=== PATIENT | male | born 1995 | race Two or more races ===

== ENCOUNTER 2018-10-07 12:15 | Emergency (ER) | payer MEDICAID ==
[~2018-10-07] VITALS: Ht 170.2 cm; Wt 148.7 kg
[2018-10-07 12:49] VITALS: BP 131/48
[2018-10-07] MEDS ORDERED: PROPARACAINE OPHTH 0.5%, 15ML EACHEYE ONE (13:30)
[2018-10-07] MEDS ORDERED: FLUORESCEIN OPHTHALMIC 1 MG STRIP EACHEYE ONE (13:30)
--- NOTE | 2018-10-07 14:35 | NUR ---
PT AT CHARGE DESK ASKING FOR DISCHARGE. DISHARGE INSTRUCTIONS REVIEWED INCLUDING MEDICATIONS AND FOLLOW UP. PT VERBALIZES UNDERSTANDING, DISCHARGE AMBULATORY.
--- NOTE | 2018-10-07 14:35 | NUR ---
PT ELOPED /A OPERATIONAL RISK CONSULTANT OR D/C.
== END 2018-10-07 14:49 | disposition home or self-care (01) ==
LOC: ED 14:30
DX: H10.021 Other mucopurulent conjunctivitis, right eye (principal)
CPT/HCPCS: 99283

== ENCOUNTER 2020-04-23 08:12 | Emergency (ER) | payer MEDICAID, OTHER ==
[~2020-04-23] VITALS: Ht 172.7 cm; Wt 167.7 kg
--- NOTE | 2020-04-23 08:30 | NUR ---
PT HAS CO OF CHEST TIGHTNESS SINCE 3 AM. PT STATES IT IS A SHARP PAIN RADIATES TO SHOULDER, HURTS WHEN TAKES A DEEP BREATH. PT NOT IN DISTRESS. DENIES GI N/V, COUGH, OR SOB. PT STATES FATHER HAD MO, UNKNOWN AGE. DENIES PAIN TO PALPITATION.
[2020-04-23] MEDS ORDERED: KETOROLAC 30 MG/1 ML ONE (08:40)
[2020-04-23] MEDS ORDERED: KETOROLAC 30 MG/1 ML IM ONE (09:00)
[2020-04-23 09:15] LABS: BASOPHILS # (AUTO) 0.04 x10^3/uL (0-0.1); BASOPHILS % (AUTO) 1 % (0-1); EOSINOPHILS # (AUTO) 0.14 x10^3/uL (0-0.4); EOSINOPHILS % (AUTO) 2 % (1-7); LYMPHOCYTES # (AUTO) 1.89 x10^3/uL (1-3.4); LYMPHOCYTES % (AUTO) 29 % (22-44); MD NO; MEAN CORPUSCULAR HEMOGLOBIN 28.7 pg (27.5-34.5); MEAN CORPUSCULAR HGB CONC 32.5 g/dL (33.2-36.2); MEAN PLATELET VOLUME 7.4 fL (7.4-10.4); MONOCYTES % (AUTO) 9 % (2-9); NEUTROPHILS # (AUTO) 3.76 x10^3/uL (1.8-6.8); NEUTROPHILS % (AUTO) 59 % (42-75); PLATELET COUNT 264 x10^3/uL (130-400); RED BLOOD COUNT 4.96 x10^6/uL (4.38-5.82); RED CELL DISTRIBUTION WIDTH 13.8 % (9.4-14.8)
--- NOTE | 2020-04-23 09:30 | NUR ---
LABS PENDING, VSS. NO NEEDS AT THIS TIME
[2020-04-23 09:52] LABS: ALBUMIN 3.5 g/dL (3.4-5.0); CALCIUM 8.7 mg/dL (8.5-10.1)
[2020-04-23 09:58] LABS: ANION GAP 8 mmol/L (5-15); CHLORIDE 107 mmol/L (98-107); CREATININE 0.87 mg/dL (0.7-1.3); TROPONIN I < 0.015 ng/mL (0.000-0.045)
[2020-04-23 10:38] VITALS: BP 135/76
--- NOTE | 2020-04-23 10:57 | NUR ---
Patient/Caregiver given discharge instructions and they have confirmed that they understand the instructions. Patient ambulatory with steady gait.
== END 2020-04-23 11:09 | disposition home or self-care (01) ==
LOC: ED 10:50
DX: R07.1 Chest pain on breathing (principal)
CPT/HCPCS: 36415; 71045; 80048; 82040; 84484; 85025; 93005; 96372; 99285; J1885